=== PATIENT | female | born 1950 | race Two or more races ===

== ENCOUNTER 2017-08-25 10:55 | Outpatient (CLI) | payer OTHER ==
[~2017-08-25 10:55] MED LIST: ATENOLOL25 MG; NABUMETONE500 MG PO; PERCOCET 5/3251 TAB PO
== END 2017-08-25 11:04 | disposition home or self-care (01) ==
LOC: MAMO-SONO 10:55
DX: Z12.31 Encounter for screening mammogram for malignant neoplasm of breast (principal); Z87.898 Personal history of other specified conditions; N60.21 Fibroadenosis of right breast; N60.22 Fibroadenosis of left breast

== ENCOUNTER 2017-09-08 13:03 | Outpatient (CLI) | payer OTHER | END 2017-09-08 13:04 | disposition home or self-care (01) | LOC: NUCLEAR 13:03 | DX: M81.0 Age-related osteoporosis without current pathological fracture (principal) ==

== ENCOUNTER 2018-03-02 10:10 | Outpatient (CLI) | payer OTHER | END 2018-03-02 11:00 | disposition home or self-care (01) | LOC: RAD 10:10 | DX: M16.0 Bilateral primary osteoarthritis of hip (principal); R05 Cough ==

== ENCOUNTER 2018-03-09 10:24 | Outpatient (CLI) | payer OTHER | END 2018-03-09 10:38 | disposition home or self-care (01) | LOC: MRI 10:24 | DX: D21.20 Benign neoplasm of connective and other soft tissue of unspecified lower limb, including hip (principal); M05.79 Rheumatoid arthritis with rheumatoid factor of multiple sites without organ or systems involvement | CPT/HCPCS: 73721 ==

== ENCOUNTER → 2018-08-26 | Outpatient (CLI) | payer OTHER | END | disposition home or self-care (01) | LOC: MAMO-SONO 11:38 | DX: Z12.31 Encounter for screening mammogram for malignant neoplasm of breast (principal); Z87.898 Personal history of other specified conditions; N60.11 Diffuse cystic mastopathy of right breast; N60.12 Diffuse cystic mastopathy of left breast; N95.2 Postmenopausal atrophic vaginitis ==

== ENCOUNTER 2018-09-24 08:51 | Outpatient (CLI) | payer OTHER | END 2018-09-24 08:58 | disposition home or self-care (01) | LOC: SONOGRAMA 08:51 | DX: N60.11 Diffuse cystic mastopathy of right breast (principal); N63.41 Unspecified lump in right breast, subareolar ==

== ENCOUNTER 2019-04-14 10:46 | Outpatient (CLI) | payer OTHER | END 2019-04-14 10:49 | disposition home or self-care (01) | LOC: SONOGRAMA 10:46 → MAMO-SONO 11:15 | DX: E04.2 Nontoxic multinodular goiter (principal) ==

== ENCOUNTER → 2019-12-10 | Outpatient (CLI) | payer OTHER | END | disposition home or self-care (01) | LOC: MAMO-SONO 08-31 10:15 | PROVIDERS: ATTEND Obstetrics & Gynecology Gynecology | DX: N60.11 Diffuse cystic mastopathy of right breast (principal); N60.12 Diffuse cystic mastopathy of left breast; Z12.31 Encounter for screening mammogram for malignant neoplasm of breast ==

== ENCOUNTER 2020-03-27 09:11 | Outpatient (CLI) | payer OTHER | END 2020-03-27 09:14 | disposition home or self-care (01) | LOC: NUCLEAR 09:11 | PROVIDERS: ATTEND Internal Medicine | DX: M81.0 Age-related osteoporosis without current pathological fracture (principal) ==

== ENCOUNTER 2020-07-31 09:36 | Outpatient (CLI) | payer OTHER | END 2020-07-31 15:34 | disposition home or self-care (01) | LOC: RAD 09:36 | PROVIDERS: ATTEND Specialist | DX: R05 Cough (principal) ==

== ENCOUNTER 2021-06-18 10:54 | Outpatient (CLI) | payer OTHER | END 2021-06-18 11:10 | disposition home or self-care (01) | LOC: RAD 10:54 | PROVIDERS: ATTEND Family Medicine | DX: Z12.31 Encounter for screening mammogram for malignant neoplasm of breast (principal); Z87.898 Personal history of other specified conditions; N60.11 Diffuse cystic mastopathy of right breast; N60.12 Diffuse cystic mastopathy of left breast; E04.1 Nontoxic single thyroid nodule; M79.642 Pain in left hand; M79.641 Pain in right hand ==

== ENCOUNTER 2021-06-20 11:28 | Outpatient (CLI) | payer OTHER | END 2021-06-20 12:54 | disposition home or self-care (01) | LOC: RAD 11:28 | PROVIDERS: ATTEND Family Medicine | DX: M79.642 Pain in left hand (principal); M79.641 Pain in right hand ==

== ENCOUNTER 2022-01-17 13:10 | Outpatient (CLI) | payer OTHER | END 2022-01-17 13:15 | disposition home or self-care (01) | LOC: RAD 13:10 | PROVIDERS: ATTEND Family Medicine | DX: M50.30 Other cervical disc degeneration, unspecified cervical region (principal); M06.09 Rheumatoid arthritis without rheumatoid factor, multiple sites ==

== ENCOUNTER 2022-01-21 09:12 | Outpatient (CLI) | payer OTHER | END 2022-01-21 09:25 | disposition home or self-care (01) | LOC: MRI 09:12 | PROVIDERS: ATTEND Internal Medicine Rheumatology | DX: M50.30 Other cervical disc degeneration, unspecified cervical region (principal) | CPT/HCPCS: 72141 ==

== ENCOUNTER 2022-03-28 11:14 | Outpatient (CLI) | payer OTHER | END 2022-03-28 11:15 | disposition home or self-care (01) | LOC: NUCLEAR 11:14 | PROVIDERS: ATTEND Internal Medicine Rheumatology | DX: M81.0 Age-related osteoporosis without current pathological fracture (principal) ==

== ENCOUNTER 2022-07-24 12:09 | Outpatient (CLI) | payer OTHER | END 2022-07-24 12:23 | disposition home or self-care (01) | LOC: MAMO-SONO 12:09 | PROVIDERS: ATTEND Obstetrics & Gynecology Gynecology | DX: R05.3 Chronic cough (principal); N60.11 Diffuse cystic mastopathy of right breast; N60.12 Diffuse cystic mastopathy of left breast ==

== ENCOUNTER 2022-09-06 10:17 | Outpatient (CLI) | payer OTHER | END 2022-09-06 10:28 | disposition home or self-care (01) | LOC: TOM 10:17 | PROVIDERS: ATTEND Internal Medicine Rheumatology | DX: R06.09 Other forms of dyspnea (principal); R09.1 Pleurisy; R07.81 Pleurodynia ==

== ENCOUNTER 2023-08-27 13:09 | Outpatient (CLI) | payer OTHER | END 2023-08-27 13:15 | disposition home or self-care (01) | LOC: MAMO-SONO 13:09 | PROVIDERS: ATTEND Family Medicine | DX: N60.11 Diffuse cystic mastopathy of right breast (principal); N60.12 Diffuse cystic mastopathy of left breast ==

== ENCOUNTER 2023-08-27 15:06 | Outpatient (CLI) | payer OTHER ==
[2023-08-27 16:03] LABS: CREATININE SERUM 0.87 mg/dL (0.55-1.02)
== END 2023-08-27 15:15 | disposition home or self-care (01) ==
LOC: LAB 15:06
PROVIDERS: ATTEND Radiology Diagnostic Radiology
DX: R10.30 Lower abdominal pain, unspecified (principal)

== ENCOUNTER 2023-08-28 07:33 | Outpatient (CLI) | payer OTHER | END 2023-08-28 08:31 | disposition home or self-care (01) | LOC: TOM 07:33 | PROVIDERS: ATTEND Internal Medicine Gastroenterology | DX: R10.31 Right lower quadrant pain (principal); R10.32 Left lower quadrant pain | CPT/HCPCS: 74177; Q9965 ==

== ENCOUNTER 2024-10-19 08:51 | Outpatient (CLI) | payer OTHER | END 2024-10-19 08:59 | disposition home or self-care (01) | LOC: MAMO-SONO 08:51 | PROVIDERS: ATTEND Family Medicine | DX: N60.11 Diffuse cystic mastopathy of right breast (principal); N60.12 Diffuse cystic mastopathy of left breast; Z12.31 Encounter for screening mammogram for malignant neoplasm of breast ==

== ENCOUNTER 2025-02-10 12:35 | Outpatient (CLI) | payer OTHER | END 2025-02-10 12:44 | disposition home or self-care (01) | LOC: RAD 12:35 | PROVIDERS: ATTEND Specialist | DX: R05.1 Acute cough (principal); N20.0 Calculus of kidney ==